=== PATIENT | male | born 1940 | race Caucasian/White ===

== ENCOUNTER 2016-11-15 13:12 | Outpatient (CLI) ==
[2016-11-15 14:40] LABS: ANION GAP 13.8; BUN/CREATININE RATIO 22.22; CALCIUM 8.8 mg/dL (8.2-10.2); CHOL/HDL RATIO 2.3 (4.5-6.4); CREATININE 1.35 mg/dL (0.60-1.10); POTASSIUM 3.8 mmol/L (3.5-5.1)
[2016-11-16 08:31] LABS: URINE CREATININE 54.5 mg/dL (Not Estab.)
[2016-11-16 15:55] LABS: URINE MALB/CR RATIO < 5.5 mg/g creat (0.0-30.0)
== END 2016-11-15 13:13 | disposition home or self-care (01) ==
LOC: LAB 13:12
PROVIDERS: ATTEND Family Medicine
DX: E11.9 Type 2 diabetes mellitus without complications (principal); E78.5 Hyperlipidemia, unspecified; N40.0 Benign prostatic hyperplasia without lower urinary tract symptoms; Z00.00 Encounter for general adult medical examination without abnormal findings; Z12.5 Encounter for screening for malignant neoplasm of prostate
CPT/HCPCS: 36415; 80048; 80061; 82043; 83036; 84443

== ENCOUNTER 2017-06-29 09:22 | Outpatient (CLI) ==
[2017-06-29 10:32] LABS: ANION GAP 16.3; BUN/CREATININE RATIO 15.65; CALCIUM 9.6 mg/dL (8.2-10.2); CHOL/HDL RATIO 4.4 (4.5-6.4); CREATININE 1.15 mg/dL (0.60-1.10); POTASSIUM 4.3 mmol/L (3.5-5.1)
== END 2017-06-29 09:23 | disposition home or self-care (01) ==
LOC: LAB 09:22
PROVIDERS: ATTEND Family Medicine
DX: E11.69 Type 2 diabetes mellitus with other specified complication (principal); E03.9 Hypothyroidism, unspecified
CPT/HCPCS: 36415; 80048; 80061; 83036; 84439; 84443

== ENCOUNTER 2018-03-14 10:09 | Outpatient (CLI) | payer OTHER | END 2018-03-14 10:10 | disposition home or self-care (01) | LOC: LAB 10:09 | PROVIDERS: ATTEND Family Medicine | DX: E55.9 Vitamin D deficiency, unspecified (principal); E03.9 Hypothyroidism, unspecified; E78.5 Hyperlipidemia, unspecified; R53.83 Other fatigue; Z12.5 Encounter for screening for malignant neoplasm of prostate | CPT/HCPCS: 36415; 80048; 80061; 82043; 82306; 82607; 84439; 84443 ==

== ENCOUNTER 2018-09-18 10:53 | Outpatient (CLI) | END 2018-09-18 10:54 | disposition home or self-care (01) | LOC: LAB 10:53 | PROVIDERS: ATTEND Family Medicine | DX: E11.69 Type 2 diabetes mellitus with other specified complication (principal); E66.9 Obesity, unspecified; R74.0 Nonspecific elevation of levels of transaminase and lactic acid dehydrogenase [LDH] | CPT/HCPCS: 36415; 80053; 80061; 83036 ==